=== PATIENT | female | born 1965 | race Caucasian/White ===

== ENCOUNTER 2017-12-15 12:17 | Inpatient (IN) | payer BC, OTHER ==
[~2017-12-15] VITALS: Ht 170.2 cm; Wt 62.6 kg
--- NOTE | 2017-12-15 12:55 | NUR ---
Presents to ER c/o nausea and vomiting x 1 week with diffused abdominal pain. Also c/o body aches, fever, and headaches x 1 week. Patient is a/ox 4. Breathing even and unlabored. No sob, nad, vitals stable. Safety and comfort measures in place. awaiting md orders.
--- NOTE | 2017-12-15 13:00 | NUR ---
NEW IV STARTED ON LFA, 18 G, BLOOD DRAWN AND SENT TO LAB.
[2017-12-15] MEDS ORDERED: MORPHINE SULFATE INJ 2 MG/ML DISP.SYRIN IV ONE ×2 (14:30→20:00)
[2017-12-15] MEDS ORDERED: IV NS 0.9% 1,000 ML BAG IV ONE (14:30)
[2017-12-15] MEDS ORDERED: ONDANSETRON HCL/PF 4 MG/2 ML VIAL IVP ONE (14:30)
[2017-12-15 14:38] LABS: INR 1.04 (0.85-1.15)
[2017-12-15] MEDS ORDERED: ONDANSETRON HCL/PF 4 MG/2 ML VIAL ONE ×2 (14:39→20:04)
[2017-12-15] MEDS ORDERED: MORPHINE SULFATE INJ 4 MG/ML DISP.SYRIN ONE ×2 (14:40→20:05)
[2017-12-15 14:43] LABS: BASOPHILS % (AUTO) 0.1 % (0.0-2.0); EOSINOPHILS % (AUTO) 0.1 % (0.0-6.0); HEMATOCRIT 31 % (33-45); HEMOGLOBIN 11.3 g/dL (11.5-14.8); LYMPHOCYTES # (AUTO) 1.4 /CMM (0.8-4.8); LYMPHOCYTES % (AUTO) 9.8 % (20.0-44.0); MEAN CORPUSCULAR HEMOGLOBIN 32 PG (26.0-33.0); MEAN CORPUSCULAR HGB CONC 36 g/dl (31.0-36.0); MEAN CORPUSCULAR VOLUME 89 fL (82-100); MONOCYTES # (AUTO) 1.1 /CMM (0.1-1.30); MONOCYTES % (AUTO) 7.4 % (2.0-12.0); NEUTROPHILS % (AUTO) 82.6 % (43.0-81.0); PLATELET COUNT (AUTO) 289 /CMM (150-450); RED BLOOD CELL COUNT(AUTO) 3.52 MIL/uL (4.0-5.2); WHITE BLOOD COUNT (AUTO) 14.5 K/uL (4.3-11.0)
--- NOTE | 2017-12-15 14:46 | NUR ---
PATIENT MEDICATED PER MD ORDERS .
[2017-12-15 14:54] LABS: ALBUMIN 2.5 g/dL (3.4-5.0); BILIRUBIN,DIRECT 0.2 mg/dL (0.0-0.2); BILIRUBIN,TOTAL 0.5 mg/dL (0.2-1.0); CALCIUM, SERUM 8.1 mg/dL (8.5-10.1); POTASSIUM 2.9 mmol/L (3.5-5.1); TOTAL PROTEIN, SERUM 6.8 g/dL (6.4-8.2)
[2017-12-15] MEDS ORDERED: IOHEXOL-300 100 ML VIAL IV ONE (15:06)
[2017-12-15] MEDS ORDERED: IV NS 0.9% 250 ML IV ONE (15:08)
[2017-12-15 15:13] LABS: APPEARANCE,URINE CLEAR (CLEAR); BILIRUBIN,URINE 1+ (NEGATIVE); BLOOD, URINE 3+ Ery/uL (NEGATIVE); COLOR,URINE YELLOW (YELLOW); KETONES,URINE 2+ (NEGATIVE); LEUKOCYTE ESTERASE ,URINE 2+ (NEGATIVE); NITRITE, URINE NEGATIVE (NEGATIVE); PH,URINE 6.5 (5.0-8.0); PROTEIN,URINE 3+ mg/dl (NEGATIVE); UGLUCOSE NEGATIVE (NEGATIVE); UROBILINOGEN,URINE 0.2 EU/dL (0.2)
--- NOTE | 2017-12-15 15:26 | NUR ---
PATIENT TAKEN TO CT VIA WHEELCHAIR.
[2017-12-15 15:28] LABS: BACTERIA,URINE 3+ /HPF (None Seen)
--- NOTE | 2017-12-15 15:41 | NUR ---
PATIENT RETURNED FROM CT IN STABLE CONDITION.
[2017-12-15] MEDS: POTASSIUM CL. PREMIX PERIPHER. 50 ML IV SCH ×2 (15:44→16:55)
[2017-12-15] MEDS ORDERED: CEFTRIAXONE 1GM BAG (ER ONLY) 1 GM/50 ML PIGGYBACK IV ONE (16:30)
--- NOTE | 2017-12-15 16:30 | NUR ---
US TECH AT BEDSIDE.
[2017-12-15 17:12] LABS: BAND % (MANUAL) 5 % (0.0-5.0); LYMPHOCYTES % (MANUAL) 10 % (16-48); MONOCYTES % (MANUAL) 9 % (0-11.0); NEUTROPHILS % (MANUAL) 76 (42-76)
--- NOTE | 2017-12-15 19:24 | NUR ---
REPORT GIVEN TO JODY BRANHAM FOR LEIDY.
[2017-12-15] MEDS ORDERED: ONDANSETRON HCL/PF - ER 4 MG/2 ML VIAL IV ONE (20:00)
--- NOTE | 2017-12-15 20:15 | NUR ---
REPORT GIVEN TO MS BRANHAM
--- NOTE | 2017-12-15 20:15 | NUR ---
MEDICATED PT ORDERED
--- NOTE | 2017-12-15 20:40 | NUR ---
MS RN NOTE RECEIVED PATIENT FROM ER, PATIENT IS ALERT AND ORIENTEDX4, AMBULATORY, STEADY GAIT, DENIES RESPIRATORY DISTRESS OR PAIN AT THIS TIME. NO EDEMA, NO SKIN ISSUE NOTED. IV ON LEFT FA IS PATENT AND INTACT. SRX2, BED IN LOW POSITION, CALL LIGHT WITHIN REACH, WILL CARRY OUT ADMISSION ORDER.
--- NOTE | 2017-12-15 20:50 | NUR ---
TRANSPORTED PT TO [facility] BED VIA WHEELCHAIR
[2017-12-15 21:08] VITALS: BP 95/49
[2017-12-15] MEDS ORDERED: Z GUARD REMEDY 2 OZ OINT TP PRN (22:00)
[2017-12-15] MEDS ORDERED: ACETAMINOPHEN 325 MG TABLET PO PRN (22:00)
[2017-12-15] MEDS ORDERED: MAG HYDROX/AL HYDROX/SIMETH 30 ML UDC PO PRN (22:00)
[2017-12-15] MEDS ORDERED: IBUPROFEN 600 MG TABLET PO PRN (22:00)
[2017-12-15] MEDS ORDERED: IV NS 0.9% 1,000 ML IV PRN (22:00)
[2017-12-15] MEDS ORDERED: HYDROCODONE/APAP 5/325MG 1 EACH TABLET PO PRN (22:00)
[2017-12-15] MEDS ORDERED: MORPHINE SULFATE INJ 4 MG/ML DISP.SYRIN IV PRN (22:00)
[2017-12-15] MEDS ORDERED: MAGNESIUM HYDROXIDE 30 ML UDC PO PRN (22:00)
[2017-12-15] MEDS: AZITHROMYCIN 250 MG TABLET PO SCH (22:39)
[2017-12-15] MEDS: ONDANSETRON HCL/PF 4 MG/2 ML VIAL IVP PRN (22:43)
[2017-12-15] MEDS ORDERED: PIPERACILLIN /TAZOBACTAM 3.375 G VIAL IV ONE (22:50)
[2017-12-15] MEDS: PIPERACILLIN /TAZOBACTAM 3.375 G in IV D5W 50 ML IV SCH (23:40)
[2017-12-15] MEDS: ZOLPIDEM TARTRATE 5 MG TABLET PO PRN (23:48)
[2017-12-16] MEDS ORDERED: PIPERACILLIN /TAZOBACTAM 3.375 G VIAL IV ONE (05:02)
[2017-12-16] MEDS: PIPERACILLIN /TAZOBACTAM 3.375 G in IV D5W 50 ML IV SCH ×4 (05:25→23:09)
[2017-12-16 06:55] LABS: BASOPHILS % (AUTO) 0.3 % (0.0-2.0); EOSINOPHILS % (AUTO) 0.1 % (0.0-6.0); HEMATOCRIT 31 % (33-45); HEMOGLOBIN 10.6 g/dL (11.5-14.8); LYMPHOCYTES # (AUTO) 1.7 /CMM (0.8-4.8); LYMPHOCYTES % (AUTO) 11.5 % (20.0-44.0); MEAN CORPUSCULAR HEMOGLOBIN 32 PG (26.0-33.0); MEAN CORPUSCULAR HGB CONC 35 g/dl (31.0-36.0); MEAN CORPUSCULAR VOLUME 92 fL (82-100); MONOCYTES # (AUTO) 1.3 /CMM (0.1-1.30); MONOCYTES % (AUTO) 9.3 % (2.0-12.0); NEUTROPHILS # (AUTO) 11.3 /CMM (1.8-8.9); NEUTROPHILS % (AUTO) 78.8 % (43.0-81.0); PLATELET COUNT (AUTO) 265 /CMM (150-450); RDW COEFFICIENT OF VARIATION 13.6 (11.5-15.0); RED BLOOD CELL COUNT(AUTO) 3.32 MIL/uL (4.0-5.2); WHITE BLOOD COUNT (AUTO) 14.4 K/uL (4.3-11.0)
--- NOTE | 2017-12-16 07:10 | NUR ---
RN OPENING NOTES. PT RECEIVED A&0X3, PT REPORTING POOR SLEEP. PT TOLERATING ROOM AIR WITHOUT SOB, PT REPORTING MINOR HEADACHE AND REQUESTING PRN BEFORE BREAKFAST. PT WITH IVC AT L FA INTACT AND OPERATIONAL. PT BRIEFED ON TODAY'S POC AND IS WITHOUT CONCERN OR COMPLAINT AT THIS TIME.
[2017-12-16 07:12] LABS: CALCIUM, SERUM 7.2 mg/dL (8.5-10.1); CREATININE 0.8 mg/dL (0.6-1.3); PHOSPHORUS 2.2 mg/dL (2.5-4.9); POTASSIUM 3.2 mmol/L (3.5-5.1)
[2017-12-16 08:00] VITALS: BP 111/63
[2017-12-16] MEDS ORDERED: K PHOS NEUTRAL 250 MG TABLET PO ONE (11:00)
[2017-12-16] MEDS: POTASSIUM CHLORIDE 20 MEQ TAB.PRT.SR PO SCH ×2 (11:33→12:00)
[2017-12-16] MEDS ORDERED: DIATR MEGLU/DIATRIZOATE SODIUM 30 ML BOTTLE (GASTROGRAPHIN) ONE (12:56)
[2017-12-16] MEDS ORDERED: LEVO750T21 PO (13:21)
[2017-12-16] MEDS ORDERED: METR500T PO (13:21)
[2017-12-16] MEDS ORDERED: ONDA4TAB5 PO (13:21)
[2017-12-16 16:00] VITALS: BP 100/58
[2017-12-16] MEDS ORDERED: IOHEXOL-300 100 ML VIAL IV ONE (17:13)
[2017-12-16] MEDS ORDERED: IV NS 0.9% 250 ML IV ONE (17:13)
[2017-12-16] MEDS: LACTOBACILLUS RHAMNOSUS GG 1 EACH CAP.SPRINK PO SCH (17:51)
[2017-12-16] MEDS ORDERED: POTASSIUM CHLORIDE 20 MEQ TAB.PRT.SR PO SCH (18:00)
--- NOTE | 2017-12-16 19:05 | NUR ---
MS RN CLOSING NOTES. PT A&0X3, TOLERATING ROOM AIR WITHOUT S/S OF RESP DISTRESS. PT DENIES PAIN. PT BED IN LOWEST LOCKED POSITION WITH HANDRAILSX3 AND CALL MARY WITHIN REACH. ALL DAY NURSE DUTIES ATTENDED TO AND PT IS WITHOUT CONCERN OR COMPLAINT AT THIS TIME. WILL ENDORSE TO NIGHT NURSE.
[2017-12-16] MEDS: ONDANSETRON HCL/PF 4 MG/2 ML VIAL IVP PRN (19:34)
--- NOTE | 2017-12-16 19:35 | NUR ---
MS RN OPENING NOTES RECEIVED PT IN BED AWAKE, ALERT, VERBALLY RESPONSIVE, ON ROOM AIR, RESPIRATIONS EVEN, UNLABORED. COMPLAINED OF HEADACHE NORCO 5/325 ADMINISTERED ORDERED. CALL LIGHT WITHIN REACH. ATTENDED ALL NEEDS. BED LOCKED IN LOWEST POSITION. WILL CONTINUE TO MONITOR ACCORDINGLY.
[2017-12-16 20:00] VITALS: BP 93/60
[2017-12-16] MEDS: AZITHROMYCIN 250 MG TABLET PO SCH (21:32)
[2017-12-16 22:00] VITALS: BP 93/60
[2017-12-16] MEDS: ZOLPIDEM TARTRATE 5 MG TABLET PO PRN (22:34)
[2017-12-17] MEDS: PIPERACILLIN /TAZOBACTAM 3.375 G in IV D5W 50 ML IV SCH ×2 (06:22→12:26)
--- NOTE | 2017-12-17 06:50 | NUR ---
MS RN CLOSING NOTES PT IN BED RESTING COMFORTABLY, DENIES ANY PAIN OR DISCOMFORT AT THIS TIME. ON ROOM AIR, NO APPARENT DISTRESS NOTED. IV SITE INTACT, PATENT. CALL LIGHT WITHIN REACH, ATTENDED ALL NEEDS. WILL CONTINUE TO MONITOR ACCORDINGLY.
--- NOTE | 2017-12-17 07:45 | NUR ---
MS RN OPENING NOTES. PT RECEIVED RESTING IN BED, A&0X3. PT REPORTS DIARRHEAX2 OVERNIGHT AND POOR SLEEP. PT TOLERATING ROOM AIR WITHOUT S/S OF RESP DISTRESS. PT DENIES PAIN. PT WITH IVC AT L FA G#18 INTACT AND SALINE FLUSH PATENT. PT BED IN LOWEST LOCKED POSITION WITH HANDRAILSX2 AND CALL MARY WITHIN REACH. PT BRIEFED ON TODAY'S POC AND IS WITHOUT CONCERN OR COMPLAINT AT THIS TIME.
[2017-12-17 08:00] VITALS: BP 111/73
[2017-12-17 08:06] LABS: BASOPHILS % (AUTO) 0.2 % (0.0-2.0); EOSINOPHILS % (AUTO) 0.2 % (0.0-6.0); HEMATOCRIT 32 % (33-45); LYMPHOCYTES # (AUTO) 1.9 /CMM (0.8-4.8); LYMPHOCYTES % (AUTO) 15.2 % (20.0-44.0); MEAN CORPUSCULAR HEMOGLOBIN 32 PG (26.0-33.0); MEAN CORPUSCULAR HGB CONC 35 g/dl (31.0-36.0); MEAN CORPUSCULAR VOLUME 91 fL (82-100); MONOCYTES # (AUTO) 0.9 /CMM (0.1-1.30); MONOCYTES % (AUTO) 7.2 % (2.0-12.0); NEUTROPHILS # (AUTO) 9.5 /CMM (1.8-8.9); NEUTROPHILS % (AUTO) 77.2 % (43.0-81.0); PLATELET COUNT (AUTO) 362 /CMM (150-450); RDW COEFFICIENT OF VARIATION 14.1 (11.5-15.0); RED BLOOD CELL COUNT(AUTO) 3.48 MIL/uL (4.0-5.2); WHITE BLOOD COUNT (AUTO) 12.3 K/uL (4.3-11.0)
[2017-12-17 08:16] LABS: ALBUMIN 2.3 g/dL (3.4-5.0); BILIRUBIN,DIRECT 0.1 mg/dL (0.0-0.2); BILIRUBIN,TOTAL 0.4 mg/dL (0.2-1.0); CALCIUM, SERUM 7.8 mg/dL (8.5-10.1); CREATININE 0.9 mg/dL (0.6-1.3); TOTAL PROTEIN, SERUM 6.5 g/dL (6.4-8.2)
[2017-12-17 08:19] LABS: POTASSIUM 2.8 mmol/L (3.5-5.1)
[2017-12-17] MEDS ORDERED: POTASSIUM CHLORIDE 20 MEQ TAB.PRT.SR PO ONE (09:30)
[2017-12-17] MEDS: LACTOBACILLUS RHAMNOSUS GG 1 EACH CAP.SPRINK PO SCH (09:36)
[2017-12-17] MEDS ORDERED: AMOX-427 PO (10:57)
[2017-12-17] MEDS ORDERED: HYDR-552 PO (10:57)
[2017-12-17] MEDS ORDERED: K PHOS NEUTRAL 250 MG TABLET PO ONE (12:00)
--- NOTE | 2017-12-17 13:59 | NUR ---
RN D/C NOTES. PT PREPARED FOR D/C PER MD. PT TOLERATING ROOM AIR WITHOUT SOB AND SAO2 WNL. PT DENIES PAIN. PT IVC REMOVED AND NAD AT SITE. PT WITH ALL BELONGINGS AND DOCUMENT SIGNED. PT BRIEFED ON SO D/C PACKET, EDUCATION AND SCRIPTS- PT VERBALIZING UNDERSTANDING, INTENT AND RESOURCES TO FOLLOW POC. ALL NURSE DUTIES ATTENDED TO AND PATIENT IS WITHOUT CONCERN OR COMPLAINT. TRANSPORT WITH [facility], AMBULATORY ESCORT TO MAIN DOOR WITH MEDIA JOB TITLES.
== END 2017-12-17 13:45 | disposition home or self-care (01) | DRG 872 ==
LOC: ER 12:20 → MED 20:05
PROVIDERS: ADMIT Nurse Practitioner Acute Care; ATTEND Nurse Practitioner Acute Care
DX: A41.9 Sepsis, unspecified organism (principal); R18.8 Other ascites; N12 Tubulo-interstitial nephritis, not specified as acute or chronic; A08.4 Viral intestinal infection, unspecified; E86.0 Dehydration; Z85.820 Personal history of malignant melanoma of skin; E87.6 Hypokalemia; H66.90 Otitis media, unspecified, unspecified ear; J32.9 Chronic sinusitis, unspecified; B34.9 Viral infection, unspecified
CPT/HCPCS: 36415; 76856-TC; 80048-TC; 80061-TC; 80074; 80076-TC; 81000-TC; 83690-TC; 83735-TC; 84100-TC; 84703-TC; 85025-TC; 85730-TC; 87081-TC; 87086-TC; A4606; J0696; J2270; J2405; J2543; J3480; J7030; J7050; J7060; Q9963; Q9967; Z7610